=== PATIENT | male | born 1985 | race African-American/Black ===

== ENCOUNTER 2019-05-29 17:16 | Emergency (ER) | payer OTHER ==
[2019-05-29 17:36] VITALS: BP 125/78; PULSE 98; TEMP 98.8; BMI 27.8
--- NOTE | 2019-05-29 17:36 | PDOC ---
Rapid Medical Evaluation Chief Complaint: Toothache Time Seen by Provider: 05/29/19 17:34 Medical Evaluation: 05/29/19 17:35 Pt c/o: luq tooth pain now with swelling to left cheek, took motrin with good relief, Pt on brief exam: rotted and decayed luq wisdom tooth PT ordered for: none pt to proceed to the ED Discharge Disposition - Diagnosis Tooth pain - Discharge Dispostion Disposition: HOME Condition at time of disposition: Stable - Prescriptions Prescriptions: Amoxicillin 875 mg PO BID #20 tablet Ibuprofen [Motrin -] 600 mg PO TID #30 tablet - Referrals Referrals: [facility] [Outside] - Patient Instructions Additional Instructions: Please take the antibiotics and pain medication as directed and return to the emergency room should symptoms worsen. Without fail, follow-up with urgent care dental either tonight or tomorrow - Post Discharge Activity
[2019-05-29] MEDS ORDERED: ACETAMINOPHEN 500 MG TABLET (FP) PO ONE (18:00)
[2019-05-29] MEDS ORDERED: ACETAMINOPHEN 500 MG TABLET (FP) ONE (18:03)
--- NOTE | 2019-05-29 18:09 | PDOC ---
History of Present Illness - General Chief Complaint: Toothache Stated Complaint: SWOLLEN FACE Time Seen by Provider: 05/29/19 17:34 - History of Present Illness Initial Comments: 05/29/19 18:07 33-year-old male without comorbidities presents for toothache x3 days without systemic symptoms Past History - Past Medical History Allergies/Adverse Reactions: Allergies Allergy/AdvReac Type Severity Reaction Status Date / Time No Known Allergies Allergy Verified 05/29/19 17:36 Home Medications: Ambulatory Orders Amoxicillin 875 mg PO BID #20 tablet 05/29/19 Ibuprofen [Motrin -] 600 mg PO TID #30 tablet 05/29/19 COPD: No - Psycho Social/Smoking Cessation Hx Smoking History: Never smoked Information on smoking cessation initiated: No Hx Alcohol Use: No Drug/Substance Use Hx: No Review of Systems - Review of Systems Constitutional: No: Fever HEENTM: Yes: Dental Problems *Physical Exam - Vital Signs Last Vital Signs Temp Pulse Resp BP Pulse Ox 98.8 F 98 H 18 125/78 99 05/29/19 17:34 05/29/19 17:34 05/29/19 17:34 05/29/19 17:34 05/29/19 17:34 - Physical Exam Comments: 05/29/19 18:07 GENERAL: The patient is awake, alert, and fully oriented, in no acute distress. HEAD: Normal with no signs of trauma. EYES: sclera anicteric, conjunctiva clear. ENT: Ears normal NECK: Normal range of motion Mouth: No areas of erythema or fluctuance there is tenderness in the left upper bugle mucosa; there is left-sided facial swelling EXTREMITIES: Normal range of motion, no edema. No clubbing or cyanosis. No cords, erythema, or tenderness. NEUROLOGICAL: Cranial nerves II through XII grossly intact. Normal speech, normal gait. PSYCH: Normal mood, normal affect. SKIN: Warm, Dry, normal turgor, no rashes or lesions noted. ED Treatment Course - Medications Given in the ED: ED Medications Discontinued Medications Generic Name Dose Route Start Last Admin Trade Name Freq PRN Reason Stop Dose Admin Acetaminophen 1,000 mg 05/29/19 18:00 05/29/19 18:05 Tylenol - PO 05/29/19 18:01 1,000 mg ONCE ONE Administration Medical Decision Making - Medical Decision Making 05/29/19 18:08 Amoxicillin and Motrin given for possible dental abscess urgent care dental follow-up discussed Discharge - Discharge Information Problems reviewed: Yes Clinical Impression/Diagnosis: Tooth pain Condition: Stable Disposition: HOME - Admission No - Additional Discharge Information Prescriptions: Amoxicillin 875 mg PO BID #20 tablet Ibuprofen [Motrin -] 600 mg PO TID #30 tablet - Follow up/Referral Referrals: [facility] [Outside] - Patient Discharge Instructions Additional Instructions: Please take the antibiotics and pain medication as directed and return to the emergency room should symptoms worsen. Without fail, follow-up with urgent care dental either tonight or tomorrow - Post Discharge Activity
== END 2019-05-29 18:24 | disposition home or self-care (01) ==
LOC: JERFT 17:16
DX: K08.89 Other specified disorders of teeth and supporting structures (principal)
CPT/HCPCS: 99281-25